=== PATIENT | female | born 1985 | race Asian ===

== ENCOUNTER 2018-10-01 07:30 | Day surgery (SDC) | payer OTHER ==
[2018-10-01 07:55] LABS: HCG UR QUAL NEGATIVE
[2018-10-01] MEDS ORDERED: LACTATED RINGERS 1,000 ML IV ONE (08:06)
[2018-10-01] MEDS ORDERED: fentaNYL 100 MCG/2 ML VIAL IVP ONE (08:21)
[2018-10-01] MEDS ORDERED: MIDAZOLAM 2 MG/2 ML VIAL IVP ONE (08:21)
[2018-10-01 09:16] VITALS: BP 104/63
== END 2018-10-01 07:31 | disposition home or self-care (01) ==
LOC: SDS 07:30
PROVIDERS: ATTEND Internal Medicine
PROC: 0DB78ZX Excision of Stomach, Pylorus, Via Natural or Artificial Opening Endoscopic, Diagnostic (ICD-10-PCS; 2018-10-01)
PROC: 0DB98ZX Excision of Duodenum, Via Natural or Artificial Opening Endoscopic, Diagnostic (ICD-10-PCS; principal; 2018-10-01 08:30)
DX: R10.13 Epigastric pain (principal); R11.0 Nausea; R19.5 Other fecal abnormalities; K29.50 Unspecified chronic gastritis without bleeding; K59.00 Constipation, unspecified; Z83.79 Family history of other diseases of the digestive system; Z87.891 Personal history of nicotine dependence
CPT/HCPCS: 43239; 81025; J7120